=== PATIENT | male | born 1995 | race Two or more races ===

== ENCOUNTER 2018-08-27 19:34 | Emergency (ER) | payer SELFPAY ==
[~2018-08-27] VITALS: Ht 167.6 cm; Wt 81.6 kg
[2018-08-27 19:53] VITALS: BP 134/85
== END 2018-08-27 20:11 | disposition left against medical advice (07) ==
LOC: ER 19:34
DX: F19.939 Other psychoactive substance use, unspecified with withdrawal, unspecified (principal); Z53.21 Procedure and treatment not carried out due to patient leaving prior to being seen by health care provider